=== PATIENT | female | born 1965 | race Caucasian/White ===

== ENCOUNTER 2018-05-16 01:27 | Emergency (ER) | payer MEDICARE, OTHER ==
[~2018-05-16] VITALS: Ht 154.9 cm; Wt 137.1 kg
[~2018-05-16 01:27] MED LIST: ACET-704 PO; AMOX1TAB61 PO; Amoxicillin/Potassium Clav PO; CALC-77 PO; CITA10TA4 PO; DIPH25CA58 PO; DOCU-109 PO; FERR159T3 PO; MULT1TAB81 PO; NAPR-695 PO; OXYC-323 PO; VITA1CAP PO
[2018-05-16] MEDS ORDERED: OXYC-323 PO (03:04)
[2018-05-16] MEDS ORDERED: AMOX500C PO (03:04)
[2018-05-16] MEDS ORDERED: PRED20TA PO (03:04)
--- NOTE | 2018-05-16 03:05 | PHYS DOC ---
Past Medical History Past Medical History: Anemia, Anxiety, GA, Other Additional Past Medical Histor: lupus, aplstic anemia leukemia Past Surgical History: Gastric Bypass, Other Additional Past Surgical Histo: spinal stimulator Alcohol Use: None Drug Use: None Adult General Chief Complaint Chief Complaint: DENTAL PROBLEM HPI HPI Patient is a 53 year old female who presents with dental pain. Patient has been having right upper back tooth pain for the past 4-5 days. Patient has had several falls as a result of this discomfort along with her known history of lupus. Patient denies any syncopal episode. Denies any chest pain or palpitations. Patient feels like this is a flare of her lupus and is actually asking only for steroids, pain medicine, and antibiotics to help with the dental pain while she is waiting to see her dentist in the next several days. Patient denies any fever. Denies any headache. No loss of consciousness with these falls. No neck pain. Reports that cold seems to make her tooth feel better [] Review of Systems Review of Systems Constitutional: Denies fever or chills [] Eyes: Denies change in visual acuity, redness, or eye pain [] HENT: Denies nasal congestion or sore throat [] Respiratory: Denies cough or shortness of breath [] Cardiovascular: No chest pain or palpitations[] GI: Denies abdominal pain, nausea, vomiting, bloody stools or diarrhea [] : Denies dysuria or hematuria [] Musculoskeletal: Denies back pain or joint pain [] Integument: Denies rash or skin lesions [] Neurologic: Denies headache, focal weakness or sensory changes [] Endocrine: Denies polyuria or polydipsia [] All other systems were reviewed and found to be within normal limits, except as documented in this note. Current Medications Current Medications Current Medications Medications (Trade) Dose Ordered Sig/Sandra Start Time Stop Time Status Last Admin Dose Admin Methylprednisolone Sodium Succinate (SOLU-Medrol 125MG VIAL) 125 mg 1X ONCE 05/16/18 03:30 05/16/18 03:31 Allergies Allergies Allergies Coded Allergies Type Severity Reaction Last Updated Verified Sulfa (Sulfonamide Antibiotics) Allergy Intermediate Rash 02/12/16 Yes hydrocodone Adverse Reaction Intermediate Anxiety 02/12/16 Yes morphine Adverse Reaction Intermediate Anxiety 02/12/16 Yes Physical Exam Physical Exam Constitutional: Well developed, well nourished, no acute distress, non-toxic appearance. [] HENT: Normocephalic, atraumatic, bilateral external ears normal, oropharynx moist, no oral exudates, nose normal. Tooth #2 has tenderness to percussion. There is no gingival swelling, no drainable abscess. No Cantrell sign.[] Eyes: PERRLA, EOMI, conjunctiva normal, no discharge. No raccoon eyes [] Neck: Normal range of motion, no tenderness, supple, no stridor. [] Cardiovascular:Heart rate regular rhythm, no murmur [] Lungs & Thorax: Bilateral breath sounds clear to auscultation [] Abdomen: Bowel sounds normal, soft, no tenderness, no masses, no pulsatile masses. [] Skin: Warm, dry, no erythema, no rash. [] Back: No tenderness, no CVA tenderness. [] Extremities: No tenderness, no cyanosis, no clubbing, ROM intact, no edema. [] Neurologic: Alert and oriented X 3, normal motor function, normal sensory function, no focal deficits noted. [] Psychologic: Affect normal, judgement normal, mood normal. [] Current Patient Data Vital Signs Vital Signs Date Time Temp Pulse Resp B/P (MAP) Pulse Ox O2 Delivery O2 Flow Rate FiO2 05/16/18 01:40 97.8 84 18 148/88 (108) 97 Room Air 97.8 EKG EKG [] Radiology/Procedures Radiology/Procedures [] Course & Med Decision Making Course & Med Decision Making Pertinent Labs and Imaging studies reviewed. (See chart for details) Medical decision making: Discussed with the patient what she would like done. Options included CT scan and full cardiac workup given these falls. Patient defers that requesting instead pain medicine to help with the tooth, antibiotics , and steroids while she gets in with her rn pacu. Patient voiced understanding of risks and benefits with this plan. All questions were answered. [] Dragon Disclaimer Dragon Disclaimer This electronic medical record was generated, in whole or in part, using a voice recognition dictation system. Departure Departure Impression: Primary Impression: Periapical abscess Disposition: 01 HOME, SELF-CARE Condition: Referrals: ADEOLA CLAY MD (PCP) Follow-up with your primary care/rheumatology team in 2 days Patient Instructions: Dental Abscess, Dental Injury Additional Instructions: Follow-up with your primary care team/rheumatology team in 2 days. Keep your appointment with the dentist in 3 days. Return to the ER if worsening pain, worsening falls, or any other concerns. Scripts Prednisone (PREDNISONE) 20 Mg Tablet 60 MG PO DAILY, #18 TAB Prov: FRANSISCO STRANGE DO 05/16/18 Amoxicillin (AMOXICILLIN) 500 Mg Capsule 500 MG PO TID, #30 CAP 0 Refills Prov: FRANSISCO STRANGE DO 05/16/18 Oxycodone/Apap 5-325 (PERCOCET 5-325 MG TABLET) 1 Each Tablet 1 TAB PO PRN Q6HRS PRN for PAIN, #10 TAB 0 Refills Prov: FRANSISCO STRANGE DO 05/16/18 FRANSISCO STRANGE DO May 16, 2018 03:04
[2018-05-16] MEDS ORDERED: methylPREDNISolone SOD SUCC PF 125 MG/2 ML VIAL. IM ONE (03:30)
[2018-05-16 03:32] VITALS: BP 136/84
== END 2018-05-16 03:33 | disposition home or self-care (01) ==
LOC: ER 01:27
DX: K04.7 Periapical abscess without sinus (principal); I25.2 Old myocardial infarction; Z88.2 Allergy status to sulfonamides; Z88.5 Allergy status to narcotic agent
CPT/HCPCS: 96372; 99284; J2930